=== PATIENT | female | born 1980 | race Two or more races ===

== ENCOUNTER 2018-02-12 00:51 | Emergency (ER) | payer OTHER ==
[~2018-02-12] VITALS: Ht 152.4 cm; Wt 63.5 kg
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
--- NOTE | 2018-02-12 01:10 | NUR ---
pt assisted to bed 14 bed, unable to sit still, restless, still raising her voice. unable to check VS at this time.
--- NOTE | 2018-02-12 01:15 | NUR ---
pt keeps pacing, gait is unsteady. Assisted to the BR; able to void freely. urine sample collected and sent to lab.
[2018-02-12] MEDS ORDERED: LORAZEPAM 1 MG TABLET ONE (01:23)
[2018-02-12] MEDS ORDERED: LORAZEPAM INJ 2 MG/ML VIAL ONE ×2 (01:38→01:44)
[2018-02-12] MEDS: LORAZEPAM INJ 2 MG/ML VIAL IM ONE ×2 (01:42→01:49)
--- NOTE | 2018-02-12 02:30 | NUR ---
Pt is asleep at this time, no signs of distress noted
--- NOTE | 2018-02-12 04:15 | NUR ---
Patient is resting comfortably in bed with eyes closed. Easily aroused. VSS
--- NOTE | 2018-02-12 06:46 | NUR ---
Patient discharged to home in stable condition. Written and verbal after care instructions given. Patient verbalizes understanding of instruction.
[2018-02-12 06:48] VITALS: BP 104/62
== END 2018-02-12 06:49 | disposition home or self-care (01) ==
LOC: ER 00:53
DX: F10.129 Alcohol abuse with intoxication, unspecified (principal); Y90.9 Presence of alcohol in blood, level not specified
CPT/HCPCS: 82962-TC; A4606; J2060; Z7610

== ENCOUNTER 2018-04-14 16:08 | Emergency (ER) | payer OTHER ==
[~2018-04-14] VITALS: Ht 152.4 cm; Wt 63.5 kg
[2018-04-14 16:21] LABS: BASOPHILS % (AUTO) 0.3 % (0.0-2.0); EOSINOPHILS % (AUTO) 0.5 % (0.0-6.0); HEMATOCRIT 41 % (33-45); HEMOGLOBIN 14.1 g/dL (11.5-14.8); LYMPHOCYTES % (AUTO) 28.6 % (20.0-44.0); MEAN CORPUSCULAR HGB CONC 34 g/dl (31.0-36.0); MEAN CORPUSCULAR VOLUME 96 fL (82-100); MONOCYTES # (AUTO) 0.6 /CMM (0.1-1.30); NEUTROPHILS # (AUTO) 6.7 /CMM (1.8-8.9); NEUTROPHILS % (AUTO) 64.6 % (43.0-81.0); PLATELET COUNT (AUTO) 335 /CMM (150-450); RED BLOOD CELL COUNT(AUTO) 4.34 MIL/uL (4.0-5.2); WHITE BLOOD COUNT (AUTO) 10.4 K/uL (4.3-11.0)
[2018-04-14] MEDS ORDERED: LEVETIRACETAM (250 MG) 250 MG TABLET PO ONE ×2 (16:30→16:33)
[2018-04-14] MEDS ORDERED: IV NS 0.9% 1,000 ML BAG IV ONE (16:30)
--- NOTE | 2018-04-14 16:30 | NUR ---
patient presented to the ER bib paramedics due to seizure. seizure precaution initiated. connected patient to the monitor and pulse ox. denies any pain at this time. Dr. Medina at bedside for eval. kept comfrotable. will continue to monitor accordingly.
[2018-04-14 16:31] LABS: CALCIUM, SERUM 8.9 mg/dL (8.5-10.1); CARBON DIOXIDE 19 mmol/L (21-32); CHLORIDE 101 mmol/L (98-107); GLUCOSE 103 mg/dL (74-106); POTASSIUM 3.5 mmol/L (3.5-5.1); SODIUM SERUM 137 mmol/L (136-145); UREA NITROGEN, BLOOD 13 mg/dL (7-18)
[2018-04-14 16:36] LABS: ALANINE AMINOTRANSFERASE 18 U/L (12-78); ALBUMIN 3.9 g/dL (3.4-5.0); ALCOHOL, BLOOD < 3 mg/dL (0-0); ALKALINE PHOSPHATASE 42 U/L (46-116); ASPARTATE AMINOTRANSFERASE 18 U/L (15-37); BILIRUBIN,DIRECT 0.1 mg/dL (0.0-0.2); BILIRUBIN,TOTAL 0.5 mg/dL (0.2-1.0); TOTAL PROTEIN, SERUM 7.4 g/dL (6.4-8.2)
--- NOTE | 2018-04-14 16:40 | NUR ---
urine collected and sent to lab.
[2018-04-14] MEDS ORDERED: KETOROLAC TROMETHAMINE INJ 30 MG/ML VIAL ONE (17:43)
[2018-04-14] MEDS ORDERED: KETOROLAC TROMETHAMINE INJ 30 MG/ML VIAL IV ONE (18:00)
--- NOTE | 2018-04-14 19:17 | NUR ---
endorsed to Marina BEEBE for itzel.
[2018-04-14 20:19] VITALS: BP 102/67
== END 2018-04-14 20:19 | disposition home or self-care (01) ==
LOC: ER 16:12
DX: R56.9 Unspecified convulsions (principal)
CPT/HCPCS: 36415; 70450-TC; 80048-TC; 80076-TC; 80305; 84703-TC; 85025-TC; G0480; J1885; J7030